=== PATIENT | female | born 1955 | race Hispanic/Latino ===

== ENCOUNTER → 2018-04-22 | Outpatient (CLI) | payer BC | LOC: MAMMO 08:09 | PROVIDERS: ATTEND Obstetrics & Gynecology | DX: Z12.31 Encounter for screening mammogram for malignant neoplasm of breast (principal) | CPT/HCPCS: 77067 ==

== ENCOUNTER → 2019-06-09 | Outpatient (CLI) | payer BC ==
--- NOTE | 2019-06-11 08:32 | Diagnostic Imaging Report ---
#[id number] - MGSCRBIL #BILATERAL DIGITAL SCREENING MAMMOGRAM WITH CAD: 06/09/2019 CLINICAL: Routine screening. Comparison is made to exams dated: 04/22/2018 mammogram and 04/03/2016 mammogram - [facility]. Current study contains 4 films. There are scattered fibroglandular elements in both breasts. Current study was also evaluated with a Computer Aided Detection (CAD) system. A clip is noted in the left breast. Benign appearing calcifications are noted bilaterally. No significant masses, calcifications, or other findings are seen in either breast. IMPRESSION: BENIGN There is no mammographic evidence of malignancy. A 1 year screening mammogram is recommended. The patient will be notified by letter of the results. RUSLAN BROWN M.D. ct/penrad:06/10/2019 17:58:19 Tool Procurement Coordinator: Ericka FERNANDEZ)(Manny), [facility] letter sent: Normal Exam Mammogram BI-RADS: 2 Benign
== END ==
LOC: MAMMO 09:29
PROVIDERS: ATTEND Obstetrics & Gynecology
DX: Z12.31 Encounter for screening mammogram for malignant neoplasm of breast (principal)
CPT/HCPCS: 77067

== ENCOUNTER → 2020-07-03 | Outpatient (CLI) | payer BC ==
--- NOTE | 2020-07-05 13:40 | Diagnostic Imaging Report ---
#[id number] - MGSCRBIL #BILATERAL DIGITAL SCREENING MAMMOGRAM WITH CAD: 07/03/2020 CLINICAL: Routine screening. Comparison is made to exams dated: 06/09/2019 mammogram and 04/22/2018 mammogram - [facility]. The tissue of both breasts is heterogeneously dense. This may lower the sensitivity of mammography. Current study was also evaluated with a Computer Aided Detection (CAD) system. There are benign lymph nodes in both breasts. There also is a biopsy clip in the left breast. No significant masses, calcifications, or other findings are seen in either breast. There has been no significant interval change. IMPRESSION: BENIGN There is no mammographic evidence of malignancy. A 1 year screening mammogram is recommended. The patient will be notified by letter of the results. JUSTICE portillo/idalia:07/05/2020 11:32:56 Medical Records Auditor: Ericka FERNANDEZ)(Manny), [facility] letter sent: Compared to Prior B9 Mammogram BI-RADS: 2 Benign
== END ==
LOC: MAMMO 09:06
PROVIDERS: ATTEND Obstetrics & Gynecology
DX: Z12.31 Encounter for screening mammogram for malignant neoplasm of breast (principal)
CPT/HCPCS: 77067

== ENCOUNTER → 2020-09-28 | Outpatient (CLI) | payer BC ==
--- NOTE | 2020-09-28 11:18 | Diagnostic Imaging Report ---
EXAM: BONE MINERAL DENSITY HISTORY: Screening for osteoporosis COMPARISON: Report from prior bone density evaluation 04/07/2017 and 03/30/2015 DISCUSSION: Evaluation of the left hip and lumbar spine was performed utilizing DEXA Hologic bone densitometer. The study is technically adequate. The patient's fracture risk is compared to an age-matched control. The patient denies prior surgery/fracture of the spine, hips or forearm. Left hip femoral neck bone mineral density: 0.651 g/cm2, T-score is -1.9, Z-score is -0.5. Left hip total bone mineral density: 0.813 g/cm2, T-score is -1.1, Z-score is 0. Total left hip bone mineral density is decreased by -11.3% compared to baseline and -8.8% compared to most recent prior exam. Lumbar spine total bone mineral density: 0.858 gm/cm2, T-score is -1.7, Z-score is 0. Total lumbar spine bone mineral density is decreased by -5.4% compared to baseline and -5.2% compared to most recent prior exam. Impression: Bone mineralization by WHO Classification is osteopenia, the fracture risk is increased. World Health Organization Fracture Risk Assessment Tool estimates 10 year fracture risk of 5.1% for major osteoporotic fracture and 0.6% for hip fracture. Fracture probability calculated for an untreated patient and probability may be lower if patient has received treatment. Signed by: Dr. Flaco Anne M.D. on 09/28/2020 11:15 AM
== END ==
LOC: DX 09:59
PROVIDERS: ATTEND Obstetrics & Gynecology
DX: Z13.820 Encounter for screening for osteoporosis (principal)
CPT/HCPCS: 77080

== ENCOUNTER → 2021-08-14 | Outpatient (CLI) | payer MEDICARE, BC | LOC: MAMMO 10:04 | PROVIDERS: ATTEND Obstetrics & Gynecology | DX: Z12.31 Encounter for screening mammogram for malignant neoplasm of breast (principal) | CPT/HCPCS: 77067 ==

== ENCOUNTER → 2022-08-21 | Outpatient (CLI) | payer MEDICARE | LOC: MAMMO 07:52 | PROVIDERS: ATTEND Obstetrics & Gynecology | DX: Z12.31 Encounter for screening mammogram for malignant neoplasm of breast (principal); M85.88 Other specified disorders of bone density and structure, other site | CPT/HCPCS: 77067; 77080 ==

== ENCOUNTER → 2025-01-25 | Outpatient (REF) | payer MEDICARE | LOC: MAMMO 09:44 | PROVIDERS: ATTEND Obstetrics & Gynecology | DX: Z12.31 Encounter for screening mammogram for malignant neoplasm of breast (principal) | CPT/HCPCS: 77067 ==

== ENCOUNTER → 2025-02-21 | Outpatient (REF) | payer MEDICARE | LOC: DX 12:06 | PROVIDERS: ATTEND Obstetrics & Gynecology | DX: M85.88 Other specified disorders of bone density and structure, other site (principal); Z91.89 Other specified personal risk factors, not elsewhere classified | CPT/HCPCS: 77080 ==